=== PATIENT | female | born 1995 | race Caucasian/White ===

== ENCOUNTER 2024-01-19 07:00 | Inpatient (IN) | payer BC, SELFPAY ==
[2024-01-19] VITALS (27 sets, daily range): BP systolic 100–122; BP diastolic 52–71; PULSE 62–98; RESP 16–17; TEMP 36.2–37.3; O2SAT 91–100; BMI 28.8
[2024-01-19] MEDS: Lactated Ringers 1,000 ML 50 ML IV (07:25)
--- NOTE | 2024-01-19 07:58 | PCM.OPRPT ---
Report of Operation Date of Procedure: 01/19/24 Pre-Operative Diagnosis: endocervical polyp Post-Operative Diagnosis: Same Surgery/Procedure Performed:: Hysteroscopy, D&C, Polypectomy Description of Surgical Findings:: Endocervical polyp Surgeon: Jennifer Contreras learning and development consultant: None Type of Anesthesia: MAC Specimen's removed: endometrial curettings, Endocervical polyp Estimated Blood Loss (mL): <5cc Fluids Replaced: 500 Description of Procedure: Informed consent was obtained the patient was taken the operating room she was placed in supine position. She was given anesthesia. She was then placed in the [facility] where she was prepped and draped in the normal sterile fashion. bladder drained prior to start of procedure. At this time the weighted speculum was placed in the posterior fornix of vagina. Single-tooth tenaculum was used to gently grasp the anterior lip the cervix. At this time the uterine cavity was sounded to approximately 8 cm. endocervical polyp noted prolapsing out of os. Gentle dilatation was performed once adequate dilatation of the cervix was achieved the hysteroscope using normal saline as a distention medium was placed. Tubal ostia visualized. Symphion resecting device used to obtain endometrial curettings and to perform endocervical polypectomy. Tissue will be sent to pathology for evaluation. Tenaculum removed. Good hemostasis. Instrument, lap count correct x 2. Vaginal Sweep was negative. fluid deficit 600cc Procedure Start Time: 07:50 Procedure Stop Time: 07:58 Complications none Admit VTE Documentation VTE Present on Admission: Yes VTE Mechan Device Prophylaxis: SCD's Reason prophylaxis not ordered:: Procedure Not Indicated
[2024-01-19 07:59] LABS: Absolute Lymphocyte Count 2.02 X10^3/uL (0.83-4.51); Absolute Neutrophil Count 10.2 X10^3/uL (2.0-7.7); Basophil# 0.04 X10^3/uL; Basophil% 0.3 % (0-1); Eosinophil# 0.04 X10^3/uL; Eosinophils% 0.3 % (0-5); Hematocrit 44.3 % (37-47); Lymphocyte # 2.02 X10^3/ul (0.83-4.51); Lymphocyte % 15.2 % (19-41); Mean Corp Hgb Conc 33.9 g/dL (32-36); Mean Corpuscular Volume 91.5 fL (81-99); Mean Platelet Vol. 10.8 fl (6.2-12.0); Monocyte# 0.93 X10^3/uL; NRBC Flagged by Analyzer 0 % (0-5); Neutrophil # 10.19 X10^3/uL (2.7-7.7); Neutrophil % 76.4 % (47-70); Platelet Count 163 K/mm3 (150-450); RBC Distribution Width CV 13.1 % (11.6-14.6); RBC Distribution Width SD 43.7 fl (35.1-43.9); Red Blood Count 4.84 M/mm3 (4.2-5.4); White Blood Count 13.3 K/mm3 (4.4-11.0)
--- NOTE | 2024-01-19 08:01 | DCINST_ITS ---
Discharge Instructions Diet Discharge Diet: No restrictions Activity May resume sexual activity in: 1 week Dressing / Incision Call your doctor if you observe: Fever of 101 or Higher, Inability to urinate, Using more than 1 pad per hour and Uncontrolled pain Follow Up Care Please Follow Up With: Jennifer Contreras MD When: 1-2 weeks post OP if you need an appointment please call [phone] Test Results: Test results from this visit will be discussed in further detail at your follow- up appointment, if applicable. Discharge Plan Admission Admit Date/Time: 01/19/24 07:00 Attending Provider: Magdaleno Pickett Primary Care Provider: Care Physician,Esther Primary Discharge Orders/Prescriptions Referrals / Follow Up: Care Physician,No Primary [Primary Care Provider] -
[2024-01-19 08:16] LABS: Bedside Glucose 93 mg/dL (74-106)
--- NOTE | 2024-01-19 08:39 | PCM.HP.OB ---
HPI - General General Date of Admission: 01/19/24 Date of Service: 01/19/24 Chief Complaint: labor HPI Narrative CHANTALE HANNON, is a 28 F who presents with contractions and 5 cm dilated. PFSH PFSH Medical History (Updated 01/19/24 @ 08:[address] Anamaria Miller, DO) Gestational diabetes Allergy/AdvReac Type Severity Reaction Status Date / Time morphine Allergy Severe Anaphylaxis Verified 01/19/24 06:47 Surgical History (Updated 01/19/24 @ 07:51 by Blanca Vaughn) History of surgery Social History Smoking Status: Never smoker History Elective abortions Hx Para 0 Spontaneous abortions Hx # Term Pregnancies Ectopic pregnancies Hx # Pregnancies Multiple births # of living children Addt'l History: EFW 4000 grams on 01/17/24 with polyhydramnios Elevated 1 hour GTT and did not complete 3 hour GTT NST FHR Rate Baby A Baseline: 130 Variability:: Moderate Accelerations:: 15 x 15 Decelerations:: None NST Reactive:: Yes FHR Category:: Category I Uterine Activity:: ctx's q 4 min Vital Signs Vital Signs Vital Signs: 01/19/24 07:29 01/19/24 07:29 01/19/24 07:29 Pulse Rate 75 Respiratory Rate 16 Blood Pressure 115/68 BP Systolic 115 BP Diastolic 68 Pulse Ox 01/19/24 07:29 Pulse Rate Respiratory Rate Blood Pressure BP Systolic BP Diastolic Pulse Ox 100 Weight Weight: 184 lb Body Mass Index (BMI) 28.8 Labs Labs Labs: Antibody Screen Pending Hct 44.3 % (37-47) Hgb 15.0 g/dL (12.0-15.0) Syphilis Total Ab Pending Assessment & Plan (1) 40 weeks gestation of : PLAN: Admit for labor. Routine intrapartum care. Diabetic protocol in labor. Epidural PRN pain control. GBS negative. Pelvis adequate and EFW expected to be < 4500 grams. (2) GDM, class A1: (3) Polyhydramnios affecting :
--- NOTE | 2024-01-19 08:56 | PCM.PN.BLA ---
Progress Note Pt doing well. Breathing through contractions. Assessment & Plan Assessment/Plan (1) 40 weeks gestation of : (2) GDM, class A1: (3) Polyhydramnios affecting : (4) Active labor at term: PLAN: Cvx /0, BBOW, head well applied. Patient declines AROM. She plans on unmedicated .
[2024-01-19 09:08] LABS: Syphilis Antibodies Non-reactive
[2024-01-19 10:04] LABS: Bedside Glucose 97 mg/dL (74-106)
[2024-01-19] MEDS: Oxytocin 15 Units/NS 250ml 15 UNITS/250 ML IV.SOLN 334 UNITS IV (10:30)
[2024-01-19] MEDS: Oxytocin 10 UNITS/ML Vial IM (10:38)
[2024-01-19] MEDS: Methylergonovine 0.2 MG/ML Ampul IM (10:40)
[2024-01-19] MEDS: Carboprost Tromethamine 250 MCG/ML Ampul IM (10:44)
[2024-01-19] MEDS: miSOPROStol 200 MCG Tablet 1000 MCG RC (10:50)
--- NOTE | 2024-01-19 11:03 | OP.PCM_ITS ---
Problems Associated Problem List Diagnoses (1) Active labor at term: (2) Polyhydramnios affecting : (3) GDM, class A1: (4) 40 weeks gestation of : (5) Vaginal delivery: (6) hemorrhage: Report of Operation Date of Procedure: 01/19/24 Pre-Operative Diagnosis: 40 week gestation, polyhydramnios, A1GDM, active labor at term Post-Operative Diagnosis: As above Surgery/Procedure Performed:: Description of Surgical Findings:: VFI in cephalic presentation. Loose nuchal cord x 1. Apgars 8, 9. Normal appearing placenta with 3 VC Surgeon: Anamaria Miller ross lift operator: None Type of Anesthesia: None Special Medications: None Specimen's removed: Placenta Drains: None Estimated Blood Loss (mL): 600 Fluids Replaced: N/A Description of Procedure: Patient progressed quickly to complete. Once complete the patient began pushing. The head of the delivered over an intact perineum. The anterior shoulder delivered with gentle downward traction and a loose nuchal cord x 1 was noted. The posterior shoulder and the body of the infant were delivered through the nuchal cord. A vigorous VFI was delivered without any excessive force, traction or delay and placed on maternal abdomen. The cord was clamped and cut after 60 second delay by the father of the baby. Pitocin was started. The placenta delivered with gentle fundal massage and was noted to be intact and normal appearing with a 3 VC. The IV was then noted to be non functioning. There was a piece of membranes sitting in the vagina which was removed. Fundus was boggy and bleeding brisk. The uterus was explored and cleared of clot. IM Pitocin, Methergine, Hemabate and rectal Cytotec were given, and fundal massage applied. The uterus was explored a second time and no retained placenta was noted. Fundus firmed up and bleeding was hemostatic. No lacerations were noted. A vaginal sweep was performed and sponge counts were correct. Grafts/Implants Used: None Complications None Admit VTE Documentation VTE Present on Admission: No
[2024-01-19] MEDS: Oxytocin 15 Units/NS 250ml 15 UNITS/250 ML IV.SOLN 83 UNITS IV (11:45)
[2024-01-19 13:03] LABS: Bedside Glucose 93 mg/dL (74-106)
[2024-01-20] VITALS (8 sets, daily range): BP systolic 95–108; BP diastolic 49–57; PULSE 75–97; RESP 14–16; TEMP 36.3–37.2; O2SAT 95–97
[2024-01-20 05:45] LABS: Absolute Lymphocyte Count 2.29 X10^3/uL (0.83-4.51); Absolute Neutrophil Count 8.6 X10^3/uL (2.0-7.7); Basophil# 0.03 X10^3/uL; Basophil% 0.2 % (0-1); Eosinophil# 0.02 X10^3/uL; Eosinophils% 0.2 % (0-5); Hematocrit 33.9 % (37-47); Hemoglobin 11.5 g/dL (12.0-15.0); Lymphocyte # 2.29 X10^3/ul (0.83-4.51); Lymphocyte % 18.6 % (19-41); Mean Corp Hgb Conc 33.9 g/dL (32-36); Mean Corpuscular Hgb 31.3 pg (27.0-32.0); Mean Corpuscular Volume 92.1 fL (81-99); Mean Platelet Vol. 10.1 fl (6.2-12.0); Monocyte# 1.24 X10^3/uL; Monocyte% 10.1 % (0-10); NRBC Flagged by Analyzer 0 % (0-5); Neutrophil # 8.64 X10^3/uL (2.7-7.7); Neutrophil % 70.1 % (47-70); Platelet Count 133 K/mm3 (150-450); RBC Distribution Width CV 13.1 % (11.6-14.6); RBC Distribution Width SD 43.4 fl (35.1-43.9); Red Blood Count 3.68 M/mm3 (4.2-5.4); White Blood Count 12.3 K/mm3 (4.4-11.0)
[2024-01-20 05:59] LABS: Bedside Glucose 89 mg/dL (74-106)
--- NOTE | 2024-01-20 11:46 | PCM.PN.OB ---
Subjective Subjective Denies complaints Objective Data Objective Data Vital Signs: Vital Signs Temp Pulse Resp BP Pulse Ox O2 Del Method 97.9 F 93 15 95/49 L 96 Room Air 01/20/24 11:35 01/20/24 11:35 01/20/24 11:35 01/20/24 11:35 01/20/24 09:17 01/20/24 09:17 Oxygen Delivery Method Room Air Weight: 184 lb Body Mass Index (BMI) 28.8 Intake & Output: Intake and Output for Last 24 Hours 01/18/24 01/19/24 01/20/24 23:59 23:59 23:59 Intake Total 654.17 / 654.17 Output Total 600 / 600 Balance 54.17 / 54.17 Lab / Micro Data 01/20/24 05:30 Labs: Laboratory Results - last 24 hr 01/19/24 12:27: POC Glucose 93 01/20/24 05:25: POC Glucose 89 01/20/24 05:30: WBC 12.3 H, RBC 3.68 L, Hgb 11.5 L, Hct 33.9 L, MCV 92.1, MCH 31.3, MCHC 33.9, RDW Std Deviation 43.4, RDW Coeff of Claudette 13.1, Plt Count 133 L, MPV 10.1, Immature Gran % (Auto) 0.800, Neut % (Auto) 70.1 H, Lymph % (Auto) 18.6 L, [place] % (Auto) 10.1 H, Eos % (Auto) 0.2, Baso % (Auto) 0.2, Absolute Neuts (auto) 8.6 H, Absolute Lymphs (auto) 2.29, Nucleated RBC % 0 Physical Exam Const alert, oriented x3 and no apparent distress HEENT normocephalic GI soft to palpation, non-tender and non-distended GI Narrative: fundus firm, mid & below umbilicus Extremity normal to inspection and no calf tenderness Assessment & Plan (1) Vaginal delivery: COMMENT: PPD#1 (2) GDM, class A1: PLAN: Plan D/c home
--- NOTE | 2024-01-20 11:47 | PCM.DC.SUM ---
Providers Date of Admission: 01/19/24 Primary Care Physician: Esther Primary Care Phys Reason For Visit: VAGINAL DELIVERY Diagnosis Discharge Diagnosis (1) Vaginal delivery: Status: Acute Code(s): O80 - Encounter for full-term uncomplicated delivery (2) GDM, class A1: Status: Acute Code(s): O24.410 - Gestational diabetes mellitus in , diet controlled Plan D/c home Medications at Discharge Home Medications vit no.95-ferrous fumarate 28 mg-folic acid 800 mcg tablet () 1 tab PO DAILY 01/19/24 acetaminophen 500 mg tablet 1,000 mg (2 x 500 mg) PO Q6H PRN PRN Pain 1-10 Or Fever #0 tabs 01/20/24 ibuprofen 600 mg tablet 600 mg PO Q6H PRN PRN Pain Score 1-10 #0 tabs 01/20/24 Hospital Course Operations None Procedures None Summary of Care Provided Minutes Spent on Discharge: 15 Weight / BMI Weight Weight: 184 lb Body Mass Index (BMI) 28.8 ABG / Lab / Microbiology Data 01/20/24 05:30 Laboratory: Laboratory Results - last 24 hr 01/19/24 12:27: POC Glucose 93 01/20/24 05:25: POC Glucose 89 01/20/24 05:30: WBC 12.3 H, RBC 3.68 L, Hgb 11.5 L, Hct 33.9 L, MCV 92.1, MCH 31.3, MCHC 33.9, RDW Std Deviation 43.4, RDW Coeff of Claudette 13.1, Plt Count 133 L, MPV 10.1, Immature Gran % (Auto) 0.800, Neut % (Auto) 70.1 H, Lymph % (Auto) 18.6 L, [place] % (Auto) 10.1 H, Eos % (Auto) 0.2, Baso % (Auto) 0.2, Absolute Neuts (auto) 8.6 H, Absolute Lymphs (auto) 2.29, Nucleated RBC % 0 D/C Instructions Discharge Diet: No restrictions Discharge Activity: May Shower May resume sexual activity in: 6 weeks Weight Bearing Status: Weight bearing as tolerated Call your doctor if you observe: Fever of 101 or Higher, Coldness, Increased Pain, Change in Color, Inability to urinate, Inability to have a bowel movement, Using more than 1 pad per hour, Shortness of breath, Dizziness, Fainting spells, Chest pain, Increased palpitations (irregular heartbeat), Calf discomfort and Uncontrolled pain Please Follow Up With: Anamaria Miller DO When: Follow up in 2 and 6 weeks for visits. Meaningful Use Info Meaningful Use Meaningful Use Diagnoses (Choose all that apply): None applicable Ischemic Stroke Statin Dosing Therapy Reference: STATIN DOSE THERAPY REFERENCE: * Patients > 75 years receive moderate or high dose statin therapy. * Patients 75 years or YOUNGER should receive HIGH intensity statin dose unless contraindicated. You will be required to document reason for non-treatment if statin daily dose does not meet guidelines. HIGH DOSE STATIN THERAPY DAILY Atorvastatin > than or = to 40 mg Rosuvastatin > than or = to 20 mg Amlodipine + Atorvastatin > than or = to 2.5/40 mg Ezetimibe + Simvastatin 10/80 mg Simvastatin 80mg Discharge Plan Admission Admit Date/Time: 01/19/24 07:00 Primary Reason for Your Visit: Vaginal delivery Attending Provider: Anamaria Miller Primary Care Provider: Care Physician,Esther Primary Discharge Orders/Prescriptions Prescriptions: New acetaminophen 500 mg Tablet 1,000 mg PO Q6H PRN PRN (Reason: Pain 1-10 Or Fever) Qty: 0 0RF ibuprofen 600 mg Tablet 600 mg PO Q6H PRN PRN (Reason: Pain Score 1-10) Qty: 0 0RF Continued PNV cmb#95-ferrous fumarate-FA [] 28 mg iron- 800 mcg tablet 1 tab PO DAILY Referrals / Follow Up: Care Physician,No Primary [Primary Care Provider] - Disposition Disposition (needs filled in before D/C Order can be placed): Home, Self Care
--- NOTE | 2024-01-24 14:46 | NURSING ---
follow up phone call made. Patient states she is doing well, minimal pain and bleeding. Denies any headaches, visual disturbances, or baby blues. Cuong is well every 2-3 hours, milk is in, denies any questions about .
== END 2024-01-20 15:15 | disposition home or self-care (01) | DRG 807 ==
LOC: WPOUT 07:05 → WP 07:05
PROVIDERS: Obstetrics & Gynecology; Admitting Provider Obstetrics & Gynecology; Visit Provider Obstetrics & Gynecology
DX: O24.420 Gestational diabetes mellitus in childbirth, diet controlled (principal); Z37.0 Single live birth; O40.3XX0 Polyhydramnios, third trimester, not applicable or unspecified; O69.81X0 Labor and delivery complicated by cord around neck, without compression, not applicable or unspecified; Z3A.40 40 weeks gestation of pregnancy
CPT/HCPCS: 59025; 59050; 82962; 85025; 86780; 86850; 86900; 86901; 99221; J7120; G0378